=== PATIENT | female | born 1965 | race Two or more races ===

== ENCOUNTER 2024-11-18 06:28 | Outpatient (CLI) | payer BC ==
[2024-11-18 06:52] LABS: Urine Bacteria None Seen /hpf (None Seen)
[2024-11-18 07:12] LABS: Basophils # (auto) 0 10 ^3/uL (0-0.2); Eosinophils # (auto) 0.1 10 ^3/uL (0-0.8); Eosinophils % (auto) 1.5 % (0.0-7.0); Hematocrit 40.9 % (36.0-46.0); Hemoglobin 13.8 g/dL (12.2-16.2); Lymphocytes # (auto) 2.1 10 ^3/uL (0.4-5.4); Lymphocytes % (auto) 42.9 % (10.0-50.0); Mean Corpuscular Hemoglobin 30.5 pg (28.0-32.0); Mean Corpuscular Hgb Conc. 33.7 g/dL (32.0-36.0); Mean Corpuscular Volume 90.5 fL (80.0-100.0); Monocytes # (auto) 0.4 10 ^3/uL (0-1.3); Monocytes % (auto) 8.6 % (0.0-12.0); Neutrophils # (auto) 2.3 10 ^3/uL (1.6-8.6); Platelet Count (auto) 271 10^3/uL (140-450); Red Blood Cells 4.52 10^6/uL (4.0-5.20); White Blood Cell 4.9 10^3/uL (4.4-10.8)
[2024-11-18 07:13] LABS: Urine Blood Negative /uL (Negative); Urine Clarity Clear (Clear); Urine Color Colorless (Yellow); Urine Protein, UAD Negative (Negative); Urine Specific Gravity 1.004 (1.001-1.035); Urine Squamous Epithelial Cell None Seen /hpf (<5); Urine Urobilinogen Normal (Negative); Urine WBC < 1 /HPF (0-5)
[2024-11-18 07:37] LABS: Alkaline Phosphatase 65 U/L (46-116); Anion Gap 11 (5-15); Aspartate Aminotransferase 28 U/L (<34); BUN/Creatinine Ratio 8.6 (10.0-20.0); Bilirubin, Total 0.5 mg/dL (0.2-1.0); Carbon Dioxide 28 mmol/L (20-31); Chloride 106 mmol/L (98-107); Potassium 3.9 mmol/L (3.5-5.1); Total Protein 7.5 g/dL (5.7-8.2)
[2024-11-18 07:44] LABS: Alanine Aminotransferase 43 U/L (7-40); Albumin 4.9 g/dL (3.2-4.8); Blood Urea Nitrogen 7 mg/dL (9-23); Calcium 10.7 mg/dL (8.7-10.4); Cholesterol 282 mg/dL (< 200); Glucose 111 mg/dL (74-106); HDL Cholesterol 62 mg/dL (40-59); LDL Cholesterol 202 mg/dL (< 100); Sodium 145 mmol/L (136-145); Triglycerides 160 mg/dL (< 150)
== END 2024-11-18 17:00 | disposition home or self-care (01) ==
LOC: LAB 06:28
PROVIDERS: ATTEND Internal Medicine
DX: Z13.29 Encounter for screening for other suspected endocrine disorder (principal); E78.00 Pure hypercholesterolemia, unspecified; R68.89 Other general symptoms and signs; R73.03 Prediabetes
CPT/HCPCS: 36415; 80053; 80061; 81001; 83036; 84436; 84443; 84480; 85025